=== PATIENT | female | born 1930 | race African-American/Black ===

== ENCOUNTER 2018-11-26 16:52 | Emergency (ER) | payer OTHER ==
[~2018-11-26] VITALS: Ht 152.4 cm; Wt 72.7 kg
[2018-11-26 17:27] VITALS: Ht 152.4 cm; Wt 72.7 kg
[2018-11-26] MEDS ORDERED: SOD CHLORIDE 0.9% 1,000 ML IV STA (17:34)
--- NOTE | 2018-11-26 17:39 | ERD ---
ER Documentation Chief Complaint Chief Complaint Normally a/o3; however, non verbal x3 hours...pt does mumble response HPI This 88-year-old female who is brought in by family for altered mental status. He said there were eating lunch when she began acting a bit altered and she would not talk anymore. She was awake and never had syncope but she was unable to speak. She just arrived in the ER at 5:30 PM. Time of onset needs to be investigated further from her accuracy but the RN tells me possibly an hour and 1/2 to 3 hours ago. The patient is awake and will follow commands and can shake her head yes and no but cannot say her name or verbalize any words. She does feel like it is hard to get out when she wants to say. ROS All systems reviewed and are negative except as per history of present illness. FmHx Family History: No coronary disease Physical Exam Vitals Vital Signs Date Temp Pulse Resp B/P (MAP) Pulse Ox O2 O2 Flow FiO2 Time Delivery Rate 11/26/18 101.0 94 18 148/100 99 Room Air 19:11 (116) 11/26/18 101.0 102 18 150/92 99 17:27 (111) Physical Exam Const: Well-developed, well-nourished Head: Atraumatic, normocephalic Eyes: Normal Conjunctiva, PERRLA, EOMI, normal sclera, no nystagmus ENT: Normal External Ears, Nose and Mouth, moist mucus membranes. Neck: Full range of motion. No meningismus, no lymphadenopathy. Resp: Clear to auscultation bilaterally, no wheezing, rhonchi, rales Cardio: Regular rate and rhythm, no murmurs, S1 S2 present Abd: Soft, non tender x 4, non distended. Normal bowel sounds, no guarding or rebound, no pulsitile abdominal masses or bruits Skin: No petechiae or rashes, no ecchymosis , no maculopapular rash Back: No midline or flank tenderness Ext: No cyanosis, or edema, FROM x 4, normal inspection, neurovascularly intact x 4 Neur: Awake and alert, right-sided strength in the arm is 4 out of 5 with pronator drift, right lower extremity strength is 4 out of 5, there is ex pressive aphasia, sensation intact x 4, no focal findings, cerebellum intact Psych: Normal Mood and Affect Result Diagram: 7/22/19 1834 11/26/18 1834 Results 24 hrs Laboratory Tests Test 11/26/18 18:34 White Blood Count 15.0 10^3/ul Red Blood Count 4.66 10^6/ul Hemoglobin 13.6 g/dl Hematocrit 41.0 % Mean Corpuscular Volume 88.0 fl Mean Corpuscular Hemoglobin 29.2 pg Mean Corpuscular Hemoglobin Concent 33.2 g/dl Red Cell Distribution Width 12.6 % Platelet Count 172 10^3/UL Mean Platelet Volume 9.4 fl Immature Granulocytes % 0.600 % Neutrophils % 81.0 % Lymphocytes % 11.2 % Monocytes % 6.7 % Eosinophils % 0.2 % Basophils % 0.3 % Nucleated Red Blood Cells % 0.0 /100WBC Immature Granulocytes # 0.090 10^3/ul Neutrophils # 12.1 10^3/ul Lymphocytes # 1.7 10^3/ul Monocytes # 1.0 10^3/ul Eosinophils # 0.0 10^3/ul Basophils # 0.1 10^3/ul Nucleated Red Blood Cells # 0.0 10^3/ul Prothrombin Time 13.8 Sec Prothrombin Time Ratio 1.1 INR International Normalized Ratio 1.05 Activated Partial Thromboplast Time 30.2 Sec Sodium Level 135 mmol/L Potassium Level 4.1 mmol/L Chloride Level 102 mmol/L Carbon Dioxide Level 26 mmol/L Anion Gap 7 Blood Urea Nitrogen 14 mg/dl Creatinine 0.80 mg/dl Est Glomerular Filtrat Rate mL/min mL/min Glucose Level 178 mg/dl Hemoglobin A1c 6.3 % Calcium Level 9.3 mg/dl Total Bilirubin 0.7 mg/dl Direct Bilirubin 0.00 mg/dl Indirect Bilirubin 0.7 mg/dl Aspartate Amino Transf (AST/SGOT) 24 IU/L Alanine Aminotransferase (ALT/SGPT) 18 IU/L Alkaline Phosphatase 86 IU/L Creatine Kinase 74 IU/L Creatine Kinase Index 0.5 Creatinine Kinase MB (Mass) 0.37 ng/ml Troponin I < 0.012 ng/ml Total Protein 6.5 g/dl Albumin 3.7 g/dl Globulin 2.80 g/dl Albumin/Globulin Ratio 1.32 Triglycerides Level 86 mg/dl Cholesterol Level 130 mg/dl LDL Cholesterol, Calculated 72 mg/dl HDL Cholesterol 41 mg/dl Cholesterol/HDL Ratio 3.1 RATIO Ethyl Alcohol Level < 10.0 mg/dl Current Medications Medications Dose Sig/Laurent Start Time Status Last (Trade) Ordered Route PRN Stop Time Admin Dose Reason Admin Sodium 1,000 ml @ Q1H STAT 11/26/18 DC 11/26/18 Chloride 1,000 mls/hr IV 17:34 18:20 11/26/18 18:33 Sodium 100 ml @ ud STK-MED 11/26/18 DC Chloride ONCE .ROUTE 17:41 11/26/18 17:42 Iohexol 100 ml @ ud STK-MED 11/26/18 DC ONCE .ROUTE 17:41 11/26/18 17:42 Procedures/MDM Code stroke was called [place] [address] Radiology Main Line: [phone] DIAGNOSTIC IMAGING REPORT Patient: ATTILA CONNOR : 1930 Age: 88 Sex: F MR #: [id number] DOS: 11/26/18 1734 Ordering MD: MILO JENKINS DO Location: E/R Room/Bed: PROCEDURE: CT Brain without contrast. CLINICAL INDICATION: Code stroke, expressive aphasia, right-sided weakness TECHNIQUE: A CT of the brain was performed utilizing axial imaging from the skull base through the vertex without intravenous contrast. Multiplanar reformatted images were made.The CTDIvol is 37.13 mGy and the DLP is 634.23 mGycm. One or more the following dose reduction techniques were utilized: Automated exposure control, adjustment of the mA and / or kV according to patient's size, or use of iterative reconstruction technique. DICOM images are available. COMPARISON: None. FINDINGS: There is no intracranial hemorrhage, mass effect, or midline shift. No extra- axial fluid collection is seen. Mild atrophy is identified with compensatory ventricular and sulcal enlargement. Moderate decreased attenuation is seen in the cerebral white matter, compatible with microvascular ischemic disease. Chronic lacunar infarcts in bilateral thalami and basal ganglia. The sutton white matter differentiation is well preserved with no acute infarct detected. The osseous structures and visualized paranasal sinuses are unremarkable. Arterial calcification. IMPRESSION: No acute bleed. No acute major territory infarct seen. Chronic lacunar infarcts in the bilateral thalami and basal ganglia. Critical result discussed with Dr. Jenkins at 06:05 p.m. on 11/26/2018. RPTAT: HJES .Olvin Mendoza MD, Date Time Electronically viewed and signed by .Olvin Mendoza MD, on 11/26/2018 18:07 .S/ CC: MILO JENKINS DO [id number] When the patient returned from CT head patient was completely back to normal. She is talking in sentences verbalizing clearly and has no weakness. CT angios currently pending [place] [address] Radiology Main Line: [phone] DIAGNOSTIC IMAGING REPORT Patient: ATTILA CONNOR : 1930 Age: 88 Sex: F MR #: [id number] DOS: 11/26/18 1734 Ordering MD: MILO JENKINS DO Location: E/R Room/Bed: PROCEDURE: CT ANGIOGRAM HEAD AND NECK CLINICAL INDICATION: Code stroke. TECHNIQUE: The study was performed utilizing a multi-slice CT scanner. Pre and postcontrast high-resolution axial sections were obtained through the head and neck. Coronal and sagittal as well as maximal intensity projection reformations were obtained. 3-D images were made. NASCET criteria were utilized in measuring stenoses. ESTIMATED DOSE: One or more the following dose reduction techniques were utilized: Automated exposure control, adjustment of the mA/ or kV according to patient's size, or use of iterative reconstruction technique. DICOM images are available for review. DICOM images are available for review. The images were reviewed on a PACS workstation. The total CTDIvol = 71.32 mGy. DLP = 655.08 mGy- cm. CONTRAST: 100 cc Omnipaque 350 IV COMPARISON: CT brain 11/26/2018 FINDINGS: CTA NECK: Aortic arch and great vessels: No arch aneurysm or dissection flap. The innominate and the left common carotid artery share a common trunk origin. No hemodynamically significant origin stenosis. Normal right common carotid artery origin. Anterior circulation: Contrast opacifies the left and right common, internal and external carotid arteries. No hemodynamically significant stenosis at the level of the carotid bifurcations or involving the internal carotid arteries. Right internal carotid artery measures 5.1 mm. Left internal carotid artery measures 6.2 mm. Posterior circulation: Contrast opacifies the left and right vertebral arteries, right dominant. There is a segmental 50 - 69% stenosis involving the proximal right vertebral artery beginning at its origin. There is a possible localized dissection of the right vertebral artery at the C4 level. The nondominant left vertebral artery is very small, with poor contrast opacification and suspected irregular luminal narrowing proximal to entering the cervical foramina transversarium, at the level of the C7 foramen transversarium and occlusion superior to C1. CTA BRAIN: Posterior circulation: Contrast opacifies the intradural vertebral arteries, right dominant there is no significant contrast opacification in the small left vertebral artery above the level of C1. Contrast opacifies the distal left vertebral artery as it approaches the site of dural penetration. Once in the subarachnoid space, the left vertebral artery is the same size as the right vertebral artery but then abruptly narrows. Normal left posterior inferior and right posterior inferior cerebellar artery origins. Intradural left vertebral artery is patent to the level of basilar artery. No basilar artery stenosis, intraluminal filling defect or basilar tip aneurysm. Contrast opacifies the left and right superior cerebellar and posterior cerebral arteries. origin right and left posterior communicating arteries due to hypoplastic P1 segments. Focal 50 - 69% stenosis proximal and distal left P2 a segment. Anterior circulation: Contrast opacifies the distal left and right internal carotid arteries, the anterior and middle cerebral arteries, the opercular and sylvian branches arising from the left and right middle cerebral arteries. The anterior communicating artery is not visualized. Posterior communicating arteries are present. 50 - 69% stenosis supraclinoid right ICA due to calcified plaque. No intraluminal filling defect or abrupt vessel cutoff. No beaver of Rayo aneurysm. IMPRESSION: 1. Left vertebral artery dissection, age indeterminate. 2. 50 - 69% stenosis proximal right vertebral artery beginning at its origin. 3. Possible localized dissection of the right vertebral artery at the level of the C4 foramen transversarium. 4. Focal 50 - 69% stenoses involving the proximal and distal left P2 segment. 5. 50-69% stenosis supraclinoid right ICA due to calcified plaque. Findings discussed with Dr. Jenkins at [facility] ED by the undersigned at 1846 hours [place] time. RPTAT: HLRS Physician Scott Date Time Electronically viewed and signed by Jaelyn Horowitz Physician on 11/26/2018 18 :51 RS/ CC: MILO JENKINS DO [id number] [place] [address] Radiology Main Line: [phone] DIAGNOSTIC IMAGING REPORT Patient: ATTILA CONNOR : 1930 Age: 88 Sex: F MR #: [id number] DOS: 11/26/18 1734 Ordering MD: MILO JENKINS DO Location: E/R Room/Bed: PROCEDURE: XR Chest. CLINICAL INDICATION: Dyspnea TECHNIQUE: Single frontal chest x-ray. COMPARISON: None available FINDINGS: Diminished lung volumes with compressive changes. Vascular crowding and bilateral basilar atelectasis. No acute infiltrate is seen, effusion, or pneumothorax. The cardiomediastinal silhouette is normal. Soft tissues and bony structures are unremarkable. IMPRESSION: 1. Low lung volumes with compressive changes and basilar atelectasis. 2. Otherwise, unremarkable chest x-ray. No acute infiltrate is seen. RPTAT: HMJB .Prakash Delgado MD, Date Time Electronically viewed and signed by .Prakash Delgado MD, MD on 11/26/2018 18:37 .B/ CC: MILO JENKINS DO [id number] Patient is remained asymptomatic here. The family states that she is done this type of behavior before with her old stroke a few years ago. The radiologist called me and said there is bilateral vertebral artery dissections however age is undetermined and she does have lots of stenosis as well. Her symptoms do not really match up with the lesion seen on the CTA however, will need to transfer to [facility] she is a [facility] patient for TIA and further work-up. Patient is currently stable Critical Care Time: 30 minutes Treatments/Evaluations: Close monitoring and treatment of unstable vital signs, cardiorespiratory, and neurologic status, while maintaining tight balance of fluid, respiratory, and cardiac interventions. This time includes discussing the case with the patient and the patient's family. This time does not include all procedures stated elsewhere in this record. This time also includes reviewing old records, labs and radiological studies. This time includes examining and re-examining the patient. Additionally, this time also includes arranging care with admitting and consulting physicians. Departure Diagnosis: Primary Impression: Dissecting hemorrhage of both vertebral arteries Additional Impression: TIA (transient ischemic attack) Condition: Stable MILO JENKINS DO Nov 26, 2018 17:39
[2018-11-26] MEDS ORDERED: SOD CHLORIDE 0.9% 100 ML ONE (17:41)
[2018-11-26] MEDS ORDERED: IOHEXOL 100 ML ONE (17:41)
[2018-11-26] MEDS ORDERED: ACETAMINOPHEN 325 MG TAB PO STA (20:07)
[2018-11-26] MEDS ORDERED: CEFEPIME 2GM/50 ML (PMX) 50 ML IVPB STA (20:07)
[2018-11-26] MEDS ORDERED: VANCOMYCIN 1 GM (PMX) 250 ML IVPB ONE (20:30)
[2018-11-26] MEDS ORDERED: LATA2.5D2 BOTH EYES (21:57)
[2018-11-26] MEDS ORDERED: ASPI-817 PO (21:57)
[2018-11-26] MEDS ORDERED: CHOL400T10 PO (21:57)
[2018-11-26] MEDS ORDERED: GLIP5TAB13 PO (21:57)
[2018-11-26] MEDS ORDERED: AMLO5TAB4 PO (21:57)
[2018-11-26] MEDS ORDERED: ATOR10TA65 PO (21:57)
[2018-11-26] MEDS ORDERED: LISI10TA2 PO (21:57)
[2018-11-26] MEDS ORDERED: NICARDipine HCL 30 MG CAPSULE PO ONE (23:30)
[2018-11-27 00:44] VITALS: BP 131/69; PULSE 87; RESP 18
== END 2018-11-27 06:34 | disposition short-term general hospital (02) ==
LOC: E/R 16:52
DX: I77.74 Dissection of vertebral artery (principal); G45.9 Transient cerebral ischemic attack, unspecified
CPT/HCPCS: 70450; 70496; 70498; 71045; 80053; 80061; 80307; 81003; 82550; 82553; 83036; 83605; 84484; 85025; 85610; 85730; 87040; 87086; 93005; 96374; 96375; 99285; J0692; J3370; J7030; Q9967